=== PATIENT | female | born 1935 | race Caucasian/White ===

== ENCOUNTER 2022-07-09 13:19 | Emergency (ER) | payer OTHER, MEDICARE ==
[2022-07-09 13:40] VITALS: BP 182/82; PULSE 81; RESP 18; TEMP 97.8; BMI 34.9
== END 2022-07-09 16:20 | disposition home or self-care (01) ==
LOC: JER 13:19
DX: I10 Essential (primary) hypertension (principal)
CPT/HCPCS: 99282-25

== ENCOUNTER 2024-08-27 15:37 | Inpatient (IN) | payer OTHER, MEDICARE ==
[2024-08-27] MEDS ORDERED: ACETAMINOPHEN INJECTION 100 ML ONE (17:51)
[2024-08-27] MEDS ORDERED: PIPERACILLIN/TAZOB 3.375 GM 3.375 GM/50 ML BAG IVPB ONE (17:52)
[2024-08-27] MEDS: PIPERACILLIN/TAZOB 3.375 GM 3.375 GM in DEXTROSE 5%-WATER - 50 ML IVPB ONE (18:02)
[2024-08-27] MEDS: ACETAMINOPHEN 1000 MG/100 ML BAG IVPB ONE (18:02)
[2024-08-27 18:09] LABS: BASO % 1.3 % (0-2.0); EOS % 4.8 % (0-4.5); LYMPH % 14.7 % (8-40); MCH 27.7 pg (25.7-33.7); MCHC 33.3 g/dl (32.0-36.0); MEAN PLT VOLUME 7.3 fl (7.5-11.1); MONO % 7.6 % (3.8-10.2); NEUT % 71.6 % (42.8-82.8); PLATELET COUNT 267 10^3/uL (134-434); RBC 3.61 M/mm3 (3.60-5.2); RDW 16.2 % (11.6-15.6); WHITE BLOOD COUNT 8.5 K/mm3 (4.0-10.0)
[2024-08-27 18:21] LABS: INR 0.99 (0.83-1.09); PROTHROMBIN TIME (PATIENT) 11.4 SEC (9.7-13.0)
[2024-08-27 18:24] LABS: ACTIVATED PTT 37.5 SECONDS (25.2-36.5)
[2024-08-27 18:26] LABS: POTASSIUM 4.1 mmol/L (3.5-5.1)
[2024-08-27 18:29] LABS: ALBUMIN 2.8 g/dl (3.4-5.0); BLOOD UREA NITROGEN 30.8 mg/dL (7-18)
[2024-08-27 18:32] LABS: CREATININE 1.6 mg/dL (0.55-1.3)
[2024-08-27 18:33] LABS: BILIRUBIN,TOTAL 0.4 mg/dL (0.2-1)
[2024-08-27] MEDS: VANCOMYCIN PREMIX 1.5 GM 1,500 MG/300 ML BAG IVPB ONE (19:05)
[2024-08-27] MEDS: VANCOMYCIN HCL 1,500 MG in DEXTROSE 5%-WATER - 500 ML IVPB ONE (19:05)
[2024-08-27] MEDS ORDERED: PIPERACILLIN/TAZOB 2.25 GM 2.25 GM in DEXTROSE 5%-WATER - 50 ML IVPB SCH (21:00)
[2024-08-27] MEDS ORDERED: PIPERACILLIN/TAZOB 2.25 GM 2.25 GM/50 ML BAG IVPB ONE (21:30)
[2024-08-27] MEDS ORDERED: HEPARIN NA (PORCINE) 5,000 UNITS/ML 1ML VIAL ONE (21:31)
[2024-08-27] MEDS: PIPERACILLIN/TAZOB 2.25 GM 2.25 GM in DEXTROSE 5%-WATER - 50 ML IVPB SCH (21:47)
[2024-08-27] MEDS: HEPARIN NA (PORCINE) 5,000 UNITS/ML 1ML VIAL SQ SCH (21:47)
[2024-08-27] MEDS: NEBIVOLOL 10 MG TABLET (FP) PO SCH (22:26)
[2024-08-28 01:23] VITALS: BMI 31.0
[2024-08-28] MEDS: LEVOTHYROXINE 75 MCG, LEVOTHYROXINE 100 MCG PO SCH (06:28)
[2024-08-28 09:04] LABS: HEMATOCRIT 28.9 % (32.4-45.2); HEMOGLOBIN 9.5 GM/dL (10.7-15.3); MCH 27.5 pg (25.7-33.7); MEAN CELL VOLUME 83.1 fl (80-96); MEAN PLT VOLUME 8.1 fl (7.5-11.1); PLATELET COUNT 251 10^3/uL (134-434); RBC 3.47 M/mm3 (3.60-5.2); RDW 16.3 % (11.6-15.6); WHITE BLOOD COUNT 8.8 K/mm3 (4.0-10.0)
[2024-08-28 09:06] LABS: POTASSIUM 4.3 mmol/L (3.5-5.1)
[2024-08-28 09:09] LABS: ALBUMIN 2.6 g/dl (3.4-5.0); BLOOD UREA NITROGEN 29.3 mg/dL (7-18); CALCIUM 8.9 mg/dL (8.5-10.1); MAGNESIUM 1.9 mg/dL (1.8-2.4)
[2024-08-28 09:13] LABS: CREATININE 1.7 mg/dL (0.55-1.3); PHOSPHOROUS 3.9 mg/dL (2.5-4.9)
[2024-08-28 09:14] LABS: BILIRUBIN,TOTAL 0.8 mg/dL (0.2-1); TOT PROT 6.5 g/dl (6.4-8.2)
[2024-08-28] MEDS ORDERED: LEVOTHYROXINE 175 MCG PO SCH (10:00)
[2024-08-28] MEDS: ACETAMINOPHEN 1000 MG/100 ML BAG IVPB PRN (14:32)
[2024-08-28] MEDS: VANCOMYCIN/WATER FOR INJ (PEG) 1,000 MG/200 ML BAG IVPB SCH (17:51)
[2024-08-28] MEDS: hydrALAZINE HCL 25 MG TABLET (FP) PO PRN (21:24)
[2024-08-28] MEDS: PIPERACILLIN/TAZOB 2.25 GM 2.25 GM in DEXTROSE 5%-WATER - 50 ML IVPB SCH (21:25)
[2024-08-29] MEDS: ACETAMINOPHEN 1000 MG/100 ML BAG IVPB PRN (06:07)
[2024-08-29] MEDS: SODIUM CHLORIDE 1,000 ML IV SCH (09:54)
[2024-08-29] MEDS: PIPERACILLIN/TAZOB 2.25 GM 2.25 GM/50 ML BAG IVPB SCH (15:42)
[2024-08-30 08:54] LABS: BASO % 0.8 % (0-2.0); EOS % 4.6 % (0-4.5); HEMATOCRIT 31.5 % (32.4-45.2); HEMOGLOBIN 10.3 GM/dL (10.7-15.3); LYMPH % 14.8 % (8-40); MCH 27.6 pg (25.7-33.7); MCHC 32.8 g/dl (32.0-36.0); MEAN CELL VOLUME 84.3 fl (80-96); MONO % 7.2 % (3.8-10.2); NEUT % 72.6 % (42.8-82.8); PLATELET COUNT 265 10^3/uL (134-434); RBC 3.73 M/mm3 (3.60-5.2); RDW 16.2 % (11.6-15.6); WHITE BLOOD COUNT 9.7 K/mm3 (4.0-10.0)
[2024-08-30 09:13] LABS: CALCIUM 9.1 mg/dL (8.5-10.1)
[2024-08-30 09:14] LABS: BLOOD UREA NITROGEN 23.4 mg/dL (7-18)
[2024-08-30 09:17] LABS: CREATININE 1.6 mg/dL (0.55-1.3)
[2024-08-30] MEDS: POLYETHYLENE GLYCOL (HEALTHYLAX) 3350 17 GM PACKET PO SCH (18:56)
[2024-08-30] MEDS: SENNOSIDES/DOCUSATE COMBO (SENNA PLUS) TABLET (UD) PO SCH (21:32)
[2024-08-31 09:53] LABS: BASO % 0.9 % (0-2.0); EOS % 5.6 % (0-4.5); HEMATOCRIT 30.2 % (32.4-45.2); LYMPH % 15.9 % (8-40); MCH 27.6 pg (25.7-33.7); MCHC 33.1 g/dl (32.0-36.0); MEAN CELL VOLUME 83.4 fl (80-96); MONO % 6.7 % (3.8-10.2); NEUT % 70.9 % (42.8-82.8); PLATELET COUNT 285 10^3/uL (134-434); RBC 3.63 M/mm3 (3.60-5.2); RDW 16.4 % (11.6-15.6); WHITE BLOOD COUNT 9.1 K/mm3 (4.0-10.0)
[2024-08-31 10:05] LABS: POTASSIUM 3.7 mmol/L (3.5-5.1)
[2024-08-31 10:07] LABS: CALCIUM 8.7 mg/dL (8.5-10.1)
[2024-08-31 10:08] LABS: BLOOD UREA NITROGEN 25.6 mg/dL (7-18)
[2024-08-31 10:11] LABS: CREATININE 1.6 mg/dL (0.55-1.3)
[2024-09-03 08:11] LABS: BASO % 0.8 % (0-2.0); EOS % 7.2 % (0-4.5); HEMATOCRIT 27.8 % (32.4-45.2); HEMOGLOBIN 9.2 GM/dL (10.7-15.3); LYMPH % 20.4 % (8-40); MCH 27.6 pg (25.7-33.7); MCHC 33.1 g/dl (32.0-36.0); MEAN CELL VOLUME 83.3 fl (80-96); MONO % 7.3 % (3.8-10.2); NEUT % 64.3 % (42.8-82.8); PLATELET COUNT 268 10^3/uL (134-434); RBC 3.34 M/mm3 (3.60-5.2); RDW 16.3 % (11.6-15.6); WHITE BLOOD COUNT 8.3 K/mm3 (4.0-10.0)
[2024-09-03 08:31] LABS: POTASSIUM 3.8 mmol/L (3.5-5.1)
[2024-09-03 08:33] LABS: BLOOD UREA NITROGEN 28.7 mg/dL (7-18); CALCIUM 8.7 mg/dL (8.5-10.1)
[2024-09-03 08:37] LABS: CREATININE 1.7 mg/dL (0.55-1.3)
[2024-09-04] MEDS: ACETAMINOPHEN 325 MG TABLET (FP) PO PRN (01:20)
[2024-09-04] MEDS: MINERAL OIL/PET HY-PHL TOPICAL OINTMENT 454 GM JAR TP SCH (21:50)
[2024-09-04] MEDS: HEPARIN NA (PORCINE) 5,000 UNITS/ML 1ML VIAL SQ SCH (21:51)
[2024-09-04] MEDS: VANCOMYCIN/WATER FOR INJ (PEG) 1,000 MG/200 ML BAG IVPB SCH (23:40)
[2024-09-05] MEDS: PIPERACILLIN/TAZOB 3.375 GM 3.375 GM in DEXTROSE 5%-WATER - 50 ML IVPB SCH (01:51)
[2024-09-05 08:10] LABS: POTASSIUM 3.8 mmol/L (3.5-5.1)
[2024-09-05 08:13] LABS: ALBUMIN 2.6 g/dl (3.4-5.0); MAGNESIUM 2.2 mg/dL (1.8-2.4)
[2024-09-05 08:15] LABS: BASO % 1.1 % (0-2.0); EOS % 7.4 % (0-4.5); HEMATOCRIT 31.1 % (32.4-45.2); LYMPH % 17.3 % (8-40); MCH 27.1 pg (25.7-33.7); MCHC 32.2 g/dl (32.0-36.0); MEAN CELL VOLUME 84.3 fl (80-96); MEAN PLT VOLUME 7.9 fl (7.5-11.1); MONO % 5.6 % (3.8-10.2); NEUT % 68.6 % (42.8-82.8); PLATELET COUNT 325 10^3/uL (134-434); RDW 16.5 % (11.6-15.6); WHITE BLOOD COUNT 9.5 K/mm3 (4.0-10.0)
[2024-09-05 08:16] LABS: CREATININE 1.5 mg/dL (0.55-1.3)
[2024-09-05 08:17] LABS: BILIRUBIN,TOTAL 0.4 mg/dL (0.2-1)
[2024-09-05 08:18] LABS: TOT PROT 6.7 g/dl (6.4-8.2)
[2024-09-06 07:33] LABS: BASO % 0.7 % (0-2.0); EOS % 7.1 % (0-4.5); HEMOGLOBIN 10.4 GM/dL (10.7-15.3); LYMPH % 15.4 % (8-40); MCH 28.1 pg (25.7-33.7); MCHC 33.4 g/dl (32.0-36.0); MEAN CELL VOLUME 83.9 fl (80-96); MEAN PLT VOLUME 7.7 fl (7.5-11.1); MONO % 5.7 % (3.8-10.2); NEUT % 71.1 % (42.8-82.8); PLATELET COUNT 326 10^3/uL (134-434); RBC 3.69 M/mm3 (3.60-5.2); RDW 16.5 % (11.6-15.6); WHITE BLOOD COUNT 9.7 K/mm3 (4.0-10.0)
[2024-09-06 07:40] LABS: POTASSIUM 3.7 mmol/L (3.5-5.1)
[2024-09-06 07:43] LABS: ALBUMIN 2.6 g/dl (3.4-5.0); CALCIUM 9.3 mg/dL (8.5-10.1)
[2024-09-06 07:44] LABS: BLOOD UREA NITROGEN 35.7 mg/dL (7-18); MAGNESIUM 2.3 mg/dL (1.8-2.4)
[2024-09-06 07:47] LABS: CREATININE 1.6 mg/dL (0.55-1.3)
[2024-09-06 07:48] LABS: BILIRUBIN,TOTAL 0.4 mg/dL (0.2-1); TOT PROT 6.8 g/dl (6.4-8.2)
[2024-09-06] MEDS: amLODIPine BESYLATE 2.5 MG TABLET (FP) PO SCH (10:28)
[2024-09-07] MEDS ORDERED: amLODIPine BESYLATE 5 MG TABLET (FP) PO SCH (08:23)
[2024-09-07 09:20] LABS: BASO % 0.9 % (0-2.0); EOS % 6.7 % (0-4.5); HEMATOCRIT 30.5 % (32.4-45.2); HEMOGLOBIN 10.3 GM/dL (10.7-15.3); LYMPH % 15.5 % (8-40); MCH 28.2 pg (25.7-33.7); MCHC 33.6 g/dl (32.0-36.0); MEAN CELL VOLUME 83.8 fl (80-96); MEAN PLT VOLUME 7.5 fl (7.5-11.1); NEUT % 72.9 % (42.8-82.8); PLATELET COUNT 339 10^3/uL (134-434); RBC 3.64 M/mm3 (3.60-5.2); RDW 16.9 % (11.6-15.6); WHITE BLOOD COUNT 9.2 K/mm3 (4.0-10.0)
[2024-09-07 09:24] LABS: INR 1.07 (0.83-1.09); PROTHROMBIN TIME (PATIENT) 12.3 SEC (9.7-13.0)
[2024-09-07 09:42] LABS: POTASSIUM 3.7 mmol/L (3.5-5.1)
[2024-09-07 09:47] LABS: CALCIUM 8.8 mg/dL (8.5-10.1)
[2024-09-07 09:48] LABS: ALBUMIN 2.6 g/dl (3.4-5.0); BLOOD UREA NITROGEN 36.6 mg/dL (7-18)
[2024-09-07 09:51] LABS: CREATININE 1.8 mg/dL (0.55-1.3)
[2024-09-07 09:52] LABS: BILIRUBIN,TOTAL 0.5 mg/dL (0.2-1)
[2024-09-07 09:53] LABS: TOT PROT 6.8 g/dl (6.4-8.2)
[2024-09-07] MEDS ORDERED: ERTAPENEM SODIUM 0.5 GM in SODIUM CHLORIDE 50 ML IVPB SCH (10:00)
[2024-09-07] MEDS ORDERED: DAPTOMYCIN 500 MG in SODIUM CHLORIDE 50 ML IVPB ONE (10:00)
[2024-09-07] MEDS: amLODIPine BESYLATE 5 MG TABLET (FP) PO SCH (10:32)
[2024-09-07] MEDS: DAPTOMYCIN 500 MG in SODIUM CHLORIDE 50 ML IVPB SCH (11:36)
[2024-09-07] MEDS: ERTAPENEM SODIUM 0.5 GM in SODIUM CHLORIDE 50 ML IVPB SCH (15:34)
[2024-09-07 19:46] VITALS: RESP 18
[2024-09-07 22:57] VITALS: BP 153/49; PULSE 59; TEMP 98.2
== END 2024-09-08 04:30 | DRG 540 ==
LOC: JER 15:37 → JERBED 19:16 → OBSVTOIN 19:53 → J7W 08-28 00:01
PROVIDERS: ADMIT Internal Medicine; ATTEND Nurse Practitioner Family
DX: M86.671 Other chronic osteomyelitis, right ankle and foot (principal); L03.115 Cellulitis of right lower limb; L97.419 Non-pressure chronic ulcer of right heel and midfoot with unspecified severity; E03.9 Hypothyroidism, unspecified; I12.9 Hypertensive chronic kidney disease with stage 1 through stage 4 chronic kidney disease, or unspecified chronic kidney disease; N18.32 Chronic kidney disease, stage 3b
CPT/HCPCS: 36415; 36569; 73610-TC-RT-FY; 73630-TC-RT-FY; 73718-TC-RT; 75820-TC-FY; 80048; 80053; 82550; 83735; 84100; 85025; 85027; 85610; 85651; 85730; 86140; 87070; 87077; 87081; 87186; 87205; 87635; 93970-TC; 97116-GP; 97162-GP; 97597; 99285-25; G0378; G0480; J0131; J0878; J1644